=== PATIENT | male | born 1985 | race Caucasian/White ===

== ENCOUNTER 2019-04-24 12:46 | Emergency (ER) | payer BC, SELFPAY ==
[2019-04-24 12:47] VITALS: BP 132/88; PULSE 89; RESP 16; TEMP 36.7; O2SAT 98; BMI 23.6
--- NOTE | 2019-04-24 13:51 | RAD_ITS ---
STUDY: X-RAY CHEST REASON FOR EXAM: Male, 33 years old. Chest discomfort started last night -- chest congestion, cough x several days TECHNIQUE: PA and lateral views of the chest. COMPARISON: None. FINDINGS: There is evidence of a focal right middle lobe infiltrate. There is no demonstrated pleural abnormality. Normal size heart. Normal mediastinum and tania. Normal visualized pulmonary arteries. Normal visualized aortic arch and descending thoracic aorta. Normal visualized thoracic spine. Normal visualized ribs, clavicles, and shoulders. There is no demonstrated abnormality of the visualized soft tissue structures of the upper abdomen. RAD/Chest PA and Lateral IMPRESSION: Focal right middle lobe infiltrate. Electronically Signed: Noel Rivera, at 14:15 EST , Service support ,
--- NOTE | 2019-04-24 13:51 | ED.VIS.CHEST ---
History of Present Illness Chief Complaint: Chest Other Detail of Chief Complaint: chest pain Informant: Patient Onset: Days - 2 Activity at onset: Unknown Timing: Intermittent Quality: Pain Location: Substernal - mid-chest only. no radiation. Current Severity: Mild Maximum Severity: Moderate Worsened By: - - lying supine. Not Worsened By: Exertion, Movement of Arm, Movement of Torso, Eating, Palpation, Breathing, Coughing Relieved By: - - sitting up. Not Relieved By: Rest Associated Symptoms: Dyspnea, Cough, Fever. Negative for: Nausea, Vomiting, Diaphoresis, Lightheadedness, Palpitations Narrative: Patient has had cold symptoms along with wheezing for the past week. He states they are improving, but the chest discomfort he has been having just darted 2 days ago. He still has had some wheezing. He does not have a history of asthma or any other medical problems. He had fevers that were subjective at the beginning of the illness but those have since resolved and not returned. No recent travel. No leg pain or swelling. No history of DVT or PE. The symptoms are nonpleuritic. He has had no hemoptysis. Past Medical History - Allergies and Home Meds Allergies/Adverse Reactions: Allergies No Known Allergies Allergy (Verified 04/24/19 12:47) Primary Care Physician: [facility] Doctor,Out of [NON-STAFF] - Past Medical History: None Smoking Status: Never smoker Drugs: None Review of Systems General: Denies: Chills, Fever, Sweats Eyes: Denies: Visual changes - bilaterally, Diplopia ENT: Denies: Rhinorrhea, Sore throat Cardiovascular: Reports: Chest pain. Denies: Palpitations Respiratory: Reports: Dyspnea - Mild wheezing, Cough. Denies: Sputum, Dyspnea on exertion Gastrointestinal: Denies: Abdominal pain, Nausea, Vomiting, Diarrhea, Melena, Hematochezia Genitourinary: Denies: Dysuria, Hematuria, Frequency Musculoskeletal: Denies: Back pain, Swelling, Extremity Pain Skin: Denies: Rash, Wounds Neurological: Denies: Headache, Weakness, Numbness Physical Exam Vital Signs/Narrative: Vital Signs Temp Pulse Resp BP Pulse Ox 04/24/19 12:47 98.1 F 89 16 132/88 H 98 Inital Vital Signs reviewed: Yes General: Well nourished, Well developed, No Acute Distress Head: Normocephalic, Atraumatic Eyes: Perrl, EOMI ENT: Moist mucous membranes, No rhinorrhea, - - Posterior oropharynx clear Neck: Supple, Nontender, No lymphadenopathy, No JVD Cardiovascular: Regular rate, Regular rhythm, No murmurs, Normal S1, Normal S2. Negative for: Tachycardia Respiratory: No distress, Chest nontender, Rhonchi - few on right base, resolve after couple breaths Abdomen: Soft, Nontender, Nondistended, Normal bowel sounds Back: Nontender, Normal Inspection Extremities: Nontender, No edema. Negative for: Calf Tenderness Skin: Normal color, No rash, No Trauma Neurological: Alert, Oriented x3, Cranial nerves II-XII grossly intact, Normal Strength, Normal Sensation Psychological: Normal affect, Normal Mood Diagnostic/Tx/Re-eval Clinical Impression(s) from Imaging Studies Chest X-Ray 04/24/19 13:51 IMPRESSION: Focal right middle lobe infiltrate. Electronically Signed: Noel Nicole, at 14:15 EST , Service support , - Medical Decision Making Patient symptoms sound pulmonary or bronchial in nature. He was given an albuterol aerosol, his chest discomfort resolved. He is ambulatory in the hallways and looks very well. His vital signs are normal and he is not hypoxic. His chest x-ray shows right middle lobe infiltrate. This is not expected since he is feeling better, however antibiotics I think are indicated given this. Will place him on Levaquin first dose given here and he will follow-up with the wellness center at the local [facility] he is a student. He does not have another PCP. ED Disposition - Plan for ED Patient: Disposition: Home or Assisted Living Diagnosis: Community acquired pneumonia Instructions: PNEUMONIA (Adult) Prescriptions: levoFLOXacin tablet [Levaquin] 500 mg PO DAILY #6 tab Transmission Status: Pending to [facility] - [facility]-5 Days
[2019-04-24 14:28] VITALS: PULSE 90; RESP 16
[2019-04-24] MEDS: Albuterol 2.5 MG/3 ML VIAL.NEB. INHALATION (14:28)
--- NOTE | 2019-04-24 15:10 | ED.DEP ---
ED Disposition - Plan for ED Patient: Disposition: Home or Assisted Living Diagnosis: Community acquired pneumonia Instructions: PNEUMONIA (Adult) Prescriptions: levoFLOXacin tablet [Levaquin] 500 mg PO DAILY #6 tab Transmission Status: Pending to [facility] #[facility] Albuterol Inhaler [Ventolin Hfa] 1 - 2 puff INHALATION Q4H PRN PRN #1 inhaler PRN Reason: Wheezing Transmission Status: Pending to [facility] Referrals: [facility] [GROUP OF PHYSICIANS] - 3-5 Days
[2019-04-24] MEDS: levoFLOXacin 750 MG Tablet PO (15:17)
== END 2019-04-24 15:23 | disposition home or self-care (01) ==
PROVIDERS: Emergency Provider Emergency Medicine
DX: J18.9 Pneumonia, unspecified organism (principal)
CPT/HCPCS: 71046; 94640; 99283